=== PATIENT | female | born 1980 | race African-American/Black ===

== ENCOUNTER 2017-04-22 21:48 | Emergency (ER) | payer OTHER ==
[2017-04-22 22:07] VITALS: BP 124/81; RESP 16; TEMP 98.9
--- NOTE | 2017-04-22 22:51 | ED PDOC ---
Arrival/HPI - General Historian: Patient - History of Present Illness Time/Duration: Other (see hpi) Quality: Aching Context: Home - General Chief Complaint: Back Pain Time Seen by Provider: 04/22/17 22:29 - History of Present Illness Narrative History of Present Illness (Text): 04/22/17 22:51 This 37 yo female with pmh back pain, presents to this ED c/o left lower back pain x 10 days. Patient stated pain started after moving furnitures in her house. Patient stated pain worsen 3 days ago. Patient noted urinary frequency x 3 days ago. denies weakness, paresthesias, GI/ incontinence, saddle anesthesia, urinary retention, hematuria, dysuria, pelvic pain, n/v, or abnormal gait. (Cat Dwyer) Past Medical History - Provider Review Nursing Documentation Reviewed: Yes - Cardiac Hx Cardiac Disorders: No - Pulmonary Hx Respiratory Disorders: Yes Hx Asthma: Yes - Neurological Hx Neurological Disorder: No - HEENT Hx HEENT Disorder: No - Renal Hx Renal Disorder: No - Endocrine/Metabolic Hx Endocrine Disorders: Yes Hx Hypothyroidism: Yes - Hematological/Oncological Hx Blood Disorders: No - Integumentary Hx Dermatological Disorder: No - Musculoskeletal/Rheumatological Hx Musculoskeletal Disorders: Yes Hx Back Pain: Yes - Gastrointestinal Hx Gastrointestinal Disorders: No - Genitourinary/Gynecological Hx Genitourinary Disorders: No - Psychiatric Hx Psychophysiologic Disorder: No Hx Substance Use: No - Surgical History Hx Tonsillectomy: Yes Family/Social History - Physician Review Nursing Documentation Reviewed: Yes Family/Social History: Other (non-contributory) Smoking Status: Never Smoked Hx Alcohol Use: No Hx Substance Use: No Allergies/Home Meds Allergies/Adverse Reactions: Allergies banana Allergy (Verified 04/22/17 22:05) RASH Home Medications: Home Meds Medication Instructions Recorded Confirmed Levothyroxine [Levoxyl] 137 mcg PO DAILY 04/22/17 04/22/17 Multivitamin with Iron 1 tab PO DAILY 04/22/17 04/22/17 [Multivitamins with Iron] Review of Systems - Review of Systems Constitutional: Normal. absent: Fatigue, Weight Change, Fevers Eyes: Normal ENT: Normal Respiratory: Normal. absent: SOB, Cough Cardiovascular: Normal. absent: Chest Pain, Palpitations Gastrointestinal: Normal. absent: Abdominal Pain, Nausea, Vomiting Genitourinary Female: Frequency. absent: Dysuria, Hematuria, Vaginal Bleeding, Vaginal Discharge Musculoskeletal: Back Pain Skin: Normal. absent: Rash Neurological: Normal, Other (see hpi). absent: Headache, Dizziness, Focal Weakness, Gait Changes, Speech Changes, Facial Droop Endocrine: Normal Hemo/Lymphatic: Normal Psychiatric: Normal Physical Exam Temperature: Afebrile Blood Pressure: Normal Pulse: Regular Respiratory Rate: Normal Appearance: Positive for: Well-Appearing, Non-Toxic, Comfortable Pain Distress: None Mental Status: Positive for: Alert and Oriented X 3 - Systems Exam Head: Present: Atraumatic, Normocephalic Pupils: Present: PERRL Extroacular Muscles: Present: EOMI Conjunctiva: Present: Normal Mouth: Present: Moist Mucous Membranes Neck: Present: Normal Range of Motion Respiratory/Chest: Present: Clear to Auscultation, Good Air Exchange. No: Respiratory Distress, Accessory Muscle Use Cardiovascular: Present: Regular Rate and Rhythm, Normal S1, S2. No: Murmurs Abdomen: Present: Normal Bowel Sounds. No: Tenderness, Distention, Peritoneal Signs Back: Present: Normal Inspection. No: CVA Tenderness Upper Extremity: Present: Normal Inspection, Normal ROM, NORMAL PULSES. No: Cyanosis, Edema Lower Extremity: Present: Normal Inspection, NORMAL PULSES, Normal ROM. No: Edema Neurological: Present: GCS=15, CN II-XII Intact, Speech Normal, Motor Func Grossly Intact, Normal Sensory Function, Normal Cerebellar Funct, Gait Normal, Memory Normal, Other (no neuro focal deficits) Skin: Present: Warm, Dry, Normal Color. No: Rashes Psychiatric: Present: Alert, Oriented x 3, Normal Insight, Normal Concentration Medical Decision Making Re-evaluation Time: 00:10 Reassessment Condition: Re-examined, Improved ED Course and Treatment: 04/23/17 00:09 Patient is resting comfortably, and is in no acute distress. Patient was instructed to follow up with PMD in 1-2 days for further evaluation. I recommended patient to take Colace, and Pedialyte for chronic constipation. I also recommended Robaxin, and Naproxen for back pain. (Cat Dwyer) - Lab Interpretations Lab Results: Lab Results 04/22/17 22:52: Urine Color Yellow, Urine Appearance Clear, Urine pH 6.5, Ur Specific Varina <= 1.005, Urine Protein Negative, Urine Glucose (UA) Negative, Urine Ketones Negative, Urine Blood Negative, Urine Nitrate Negative, Urine Bilirubin Negative, Urine Urobilinogen 0.2, Ur Leukocyte Esterase Negative - RAD Interpretation Narrative RAD Interpretations (Text): 04/23/17 00:10 LS x-rays: No fx or dislocation. Large amount of stool. no bowel obstruction. no free air (Dwyer,Nahim P) Radiology Orders: 04/22/17 22:42 LS SPINE WITH OBL > 18 YRS OLD [RAD] Stat - Medication Orders Current Medication Orders: Discontinued Medications Cyclobenzaprine HCl (Flexeril) 10 mg PO STAT STA Stop: 04/23/17 00:11 Last Admin: 04/23/17 00:22 Dose: 10 mg Ketorolac Tromethamine (Toradol) 30 mg IM STAT STA Stop: 04/22/17 22:44 Last Admin: 04/22/17 22:57 Dose: 30 mg Disposition/Present on Arrival - Present on Arrival Any Indicators Present on Arrival: No History of DVT/PE: No History of Uncontrolled Diabetes: No Urinary Catheter: No History of Decub. Ulcer: No History Surgical Site Infection Following: None - Disposition Have Diagnosis and Disposition been Completed?: Yes Disposition Time: 00:11 Patient Plan: Discharge - Disposition Diagnosis: Back pain, Constipation Disposition: HOME/ ROUTINE Condition: GOOD Discharge Instructions (ExitCare): Constipation (ED), Back Pain (ED) Additional Instructions: Call private doctor for follow up visit in 1-2 days. Take medication as instructed. Drink enough of water daily. Return to emergency if pain worsen Prescriptions: Docusate Sodium [Colace] 100 mg PO BID #30 capsule Famotidine [Pepcid] 40 mg PO DAILY #10 tablet Methocarbamol [Robaxin-750] 750 mg PO TID #21 tab Naproxen 500 mg PO BID PRN #14 tab PRN Reason: Pain, Severe (8-10) Polyethylene Glycol 3350 [Miralax] 17 gm PO DAILY #1 bottle Referrals: Yolanda Quintana MD [Primary Care Provider] - Follow up with primary Forms: [email or web address] (Micronesian) - Notes Notes (Text): 04/23/17 16:37 (official radiology reading) XR L spine : No acute fracture, spondylolysis or spondylolisthesis. Suspect right nephrolithiasis, the largest calcification in the right lower pole measures 7 mm. Pt called, notified of XR findings. Advised to f/u results with her pmd, pt verbalize understanding of instructions to f/u. (Doc DOUGLASS,Yen Carcamo)
[2017-04-22 23:04] LABS: PH,URINE 6.5 (4.7-8.0); URINE BILIRUBIN NEGATIVE (NEGATIVE); URINE BLOOD NEGATIVE (NEGATIVE); URINE GLUCOSE (UA) NEGATIVE (NEGATIVE); URINE KETONE NEGATIVE (NEGATIVE); URINE LEUKOCYTE ESTERASE NEGATIVE Leu/uL (NEGATIVE); URINE PROTEIN NEGATIVE mg/dL (<30 mg/dL); URINE UROBILINOGEN 0.2 E.U./dL (<1 E.U./dL)
[2017-04-22 23:07] LABS: URINE APPEARANCE CLEAR (CLEAR); URINE COLOR YELLOW (YELLOW)
[2017-04-23 00:22] VITALS: O2SAT 99
[2017-04-23 00:23] VITALS: PULSE 85
--- NOTE | 2017-04-23 08:55 | RAD ---
PROCEDURE: Radiographs of the Lumbar Spine. HISTORY: Back pain COMPARISON: No prior. FINDINGS: BONES: There is normal alignment of the lumbar vertebral bodies. There is straightening of the lumbar spine with loss of normal lumbar lordosis. Bone mineralization is normal. There is no acute fracture, spondylolysis or spondylolisthesis. DISC SPACES: The disc heights are maintained. OTHER FINDINGS: There are at least 3 calcifications overlying the right renal silhouette, the largest measures 7 mm. Both sacroiliac joints are normal. An IUD overlies the pelvis. There is large amount of stool in the colon. IMPRESSION: No acute fracture, spondylolysis or spondylolisthesis. Suspect right nephrolithiasis, the largest calcification in the right lower pole measures 7 mm.
== END 2017-04-23 00:23 | disposition home or self-care (01) ==
LOC: ED 21:48
DX: M54.5 Low back pain (principal); K59.00 Constipation, unspecified
CPT/HCPCS: 72110; 81003; 81025; 87086; 96372; 99282; J1885